=== PATIENT | female | born 1970 | race Caucasian/White ===

== ENCOUNTER → 2018-07-11 | Outpatient (CLI) | payer OTHER ==
--- NOTE | 2018-07-14 11:38 | MM ---
Reason for exam: screening (asymptomatic). Last mammogram was performed 6 years ago. History: Family history of breast cancer in maternal aunt at age 68. Took hormonal contraceptives for 5 years beginning at age 18. Physical Findings: A clinical breast exam by your physician is recommended on an annual basis and results should be correlated with mammographic findings. MG Screening Mammo w CAD Bilateral CC and MLO view(s) were taken. Prior study comparison: July 10, 2012, [facility] DIGITAL LEFT BREAST MAMMOGRAM w/CAD. July 04, 2012, bilateral digital screening mammo w/CAD. The breast tissue is heterogeneously dense. This may lower the sensitivity of mammography. No significant changes when compared with prior studies. ASSESSMENT: Benign, BI-RAD 2 RECOMMENDATION: Routine screening mammogram of both breasts in 1 year.
== END | disposition home or self-care (01) ==
LOC: RADMAMWWP 07:10
PROVIDERS: ATTEND Obstetrics & Gynecology
DX: Z12.31 Encounter for screening mammogram for malignant neoplasm of breast (principal)
CPT/HCPCS: 77067

== ENCOUNTER → 2018-12-31 | Day surgery (SDC) | payer OTHER ==
[2018-12-26 15:25] VITALS: BMI 30.7
[~2018-12-31] MED LIST: LACTATED RINGERS 1,000 ML IV SCH; LIDOCAINE 1% 20 ML VIAL (10MG/ML) FOR IV START INTRADERMA ONE; PROPOFOL 10 MG/ML 20 ML VIAL IV ONE
--- NOTE | 2018-12-31 08:47 | P.GSHP ---
History of Present Illness H&P Date: 12/31/18 CHIEF COMPLAINT: Colon screen HISTORY OF PRESENT ILLNESS: The patient is a 48-year-old female who presents for colon screen. Lower endoscopy was offered for further evaluation and management. PAST MEDICAL HISTORY: Please see list. PAST SURGICAL HISTORY: Please see list. MEDICATIONS: Please see list. ALLERGIES: Please see list. SOCIAL HISTORY: No illicit drug use FAMILY HISTORY: No reports of Crohn disease or ulcerative colitis. REVIEW OF ORGAN SYSTEMS: CONSTITUTIONAL: No reports of fevers or chills. PHYSICAL EXAM: VITAL SIGNS: Stable GENERAL: Well-developed pleasant in no acute distress. HEENT: No scleral icterus. Extraocular movements grossly intact. Moist buccal mucosa. NECK: Supple without lymphadenopathy. CHEST: Unlabored respirations. Equal bilateral excursions. CARDIOVASCULAR: Regular rate and rhythm. Distal 2+ pulses. ABDOMEN: Soft, nontender, nondistended. MUSCULOSKELETAL: No clubbing, cyanosis, or edema. ASSESSMENT: 1. Colon screen. PLAN: 1. Recommend proceeding with a lower endoscopy Past Medical History Past Medical History: Hyperlipidemia, Hypertension Additional Past Medical History / Comment(s): LOOSE STOOLS History of Any Multi-Drug Resistant Organisms: None Reported Past Surgical History: Section, Tonsillectomy Additional Past Surgical History / Comment(s): C SECTION X3 Past Anesthesia/Blood Transfusion Reactions: No Reported Reaction Smoking Status: Never smoker - Past Family History Mother Family Medical History: No Reported History Medications and Allergies Home Medications Medication Instructions Recorded Confirmed Type Lisinopril [Zestril] 10 mg PO DAILY 12/26/18 12/26/18 History Multivitamin with Iron 1 each PO DAILY 12/26/18 12/26/18 History [Multivitamins with Iron] Allergies Allergy/AdvReac Type Severity Reaction Status Date / Time No Known Allergies Allergy Verified 12/26/18 14:56
[2018-12-31 11:23] VITALS: TEMP 97.6
[2018-12-31 12:23] VITALS: RESP 17
--- NOTE | 2018-12-31 12:26 | P.PCN ---
Date of Procedure: 12/31/18 Description of Procedure: PREOPERATIVE DIAGNOSIS: Altered bowel function with diarrhea Family history of colon polyps, father POSTOPERATIVE DIAGNOSIS: Altered bowel function with diarrhea Family history of colon polyps, father Diverticulosis, scattered. External and internal prolapsed hemorrhoids stage IV OPERATION: Colonoscopy to the ileocecal valve and appendiceal orifice. Random cold biopsy forceps were obtained for microscopic colitis. SURGEON: Johana Dubose MD. ANESTHESIA: MAC. INDICATIONS: The patient is a 48-year-old female who presents with change in bowel habits. She has a family history of colon polyps in her father. This is her first colonoscopy. Benefits and risks were described and informed consent was obtained. DESCRIPTION OF PROCEDURE: The patient had undergone Gatorade, MiraLAX and Dulcolax prep. She had been brought into the operating room and laid in the left lateral decubitus position. After adequate intravenous sedation, the rectum was examined with 2% lidocaine jelly. Large external hemorrhoids were encountered. The rectal tone was within normal limits. No lesions were palpated in the rectal vault. An Olympus colonoscope was advanced until the ileocecal valve and appendiceal orifice were clearly viewed. The prep was excellent with clear visualization of the mucosal folds. The scope was removed with visualization of each mucosal fold. Scattered diverticulosis was encountered. No colonic polyps were found. Random cold biopsy forceps were obtained for microscopic colitis. Retroflexion of the scope demonstrated grade 4 internal hemorrhoids without active bleeding or inflammation. The colon was desufflated. The patient had tolerated the procedure well. Withdrawal time was over 6 minutes. FINDINGS: Aronchick preparation quality scale 1 (1-5) Internal hemorrhoids, stage IV External prolapsed hemorrhoids, stage IV No arteriovenous malformations. No adenomatous polyps. Scattered diverticulosis Random cold biopsy forceps were obtained for microscopic colitis. RECOMMENDATIONS: Lower endoscopy repeat in 5 years, 2023 Plan - Discharge Summary Discharge Rx Participant: Yes New Discharge Prescriptions: No Action Lisinopril [Zestril] 10 mg PO DAILY Multivitamin with Iron [Multivitamins with Iron] 1 each PO DAILY Discharge Medication List Lisinopril [Zestril] 10 mg PO DAILY 12/26/18 [History] Multivitamin with Iron [Multivitamins with Iron] 1 each PO DAILY 12/26/18 [History] Follow up Appointment(s)/Referral(s): Johana Dubose MD [STAFF PHYSICIAN] - 01/28/19 Patient Instructions/Handouts: *Surgery [facility] - (Anesthesia) Endoscopy Discharge Instructions, Microscopic Colitis (DC), Colonoscopy (DC) Activity/Diet/Wound Care/Special Instructions: Repeat colonoscopy in 5-10 years, 2023 Discharge Disposition: HOME SELF-CARE
[2018-12-31 12:29] VITALS: BP 123/66; PULSE 78
== END | disposition home or self-care (01) ==
LOC: ORWHC2ENDO 10:28
PROVIDERS: ATTEND Surgery Plastic and Reconstructive Surgery
DX: R19.7 Diarrhea, unspecified (principal); K57.30 Diverticulosis of large intestine without perforation or abscess without bleeding; K64.3 Fourth degree hemorrhoids; I10 Essential (primary) hypertension; E78.5 Hyperlipidemia, unspecified; Z83.71 Family history of colonic polyps; Z79.899 Other long term (current) drug therapy
CPT/HCPCS: 81025; 88305; 45380; J2704

== ENCOUNTER → 2022-06-08 | Outpatient (CLI) | payer OTHER ==
--- NOTE | 2022-06-08 16:36 | BD ---
EXAMINATION TYPE: Axial Bone Density DATE OF EXAM: 06/08/2022 COMPARISON: NEW TO DEXA STUDIES.....BASELINE TODAY CLINICAL HISTORY: 52 years year old Female. ICD-10 CODE: N95.1 MENOPAUSAL STATE Height: 65 Weight: 178 FRAX RISK QUESTIONS: NOTHING TO NOTE HERE, EXCEPT STEROIDS ON AND OFF FOR ARTHRITIS AND SCARING FROM TKR RISK FACTORS HISTORY OF: Postmenopausal woman: YES, 51 YRS OLD Hyperparathyroidism: NO Adrenal Insufficiency: NO MEDICATIONS: Prednisone or other steroids: ON AND OFF FOR ILLNESS AND SCARING OF TKR Additional Medications: BP MEDS, CALCIUM Additional History: HYPERTENSION, OSTEOARTHRITIS, RT TKR 4 MOS AGO EXAM MEASUREMENTS: Bone mineral densitometry was performed using the [employer]ish System. Bone mineral density as measured about the Lumbar spine is: ----- L1-L4(G/cm2): 1.183 T Score Values are as follows: ----- L1: 0.7 ----- L2: 0.1 ----- L3: -0.3 ----- L4: -0.4 ----- L1-L4: 0.0 Bone mineral density BASELINE STUDY Bone mineral density about the R hip (g/cm2): 0.856 Bone mineral density about the L hip (g/cm2): 0.947 T Score values are as follows -----R Neck: -1.4 -----L Neck: -1.0 -----R Total: -1.2 -----L Total: -0.5 Bone mineral density BASELINE STUDY FRAX%s: The graph provided illustrates a 4.7% chance for a major osteoporotic fx and a 0.3% chance fo r the hips probability for fx in 10 years time. IMPRESSION: Normal (Values between +1 and -1 indicate normal bone mass). Consider repeating this study in 5 year s or sooner if there is some new clinical indication. NOTE: T-SCORE=SD OF THE YOUNG ADULT MEAN.
--- NOTE | 2022-06-11 09:38 | MM ---
Reason for Exam: Screening (asymptomatic). Last mammogram was performed 3 year(s) and 11 month(s) ago. Patient History: Menarche at age 17. First Full-Term at age 23. Postmenopausal. Hormonal Contraceptives for 5 years from age 18 until age 23. Maternal aunt had breast cancer, age 68. Risk Values: Rae 5 year model risk: 0.8%. NCI Lifetime model risk: 7.2%. Prior Study Comparison: 07/04/2012 Bilateral Screening Mammogram, [facility]. 07/10/2012 Left Diagnostic Mammogram, [facility]. 07/11/2018 Bilateral Screening Mammogram, [facility]. Tissue Density: The breast tissue is heterogeneously dense. This may lower the sensitivity of mammography. Findings: Analyzed By CAD. There is no suspicious group of microcalcifications or new suspicious mass in either breast. No significant change from prior exams. Overall Assessment: Negative, BI-RAD 1 Management: Screening Mammogram of both breasts in 1 year. A clinical breast exam by your physician is recommended on an annual basis and results should be correlated with mammographic findings. Electronically signed and approved by: Noe Staton D.O.
== END | disposition home or self-care (01) ==
LOC: RADMAMWWP 10:56
PROVIDERS: ATTEND Obstetrics & Gynecology
DX: Z12.31 Encounter for screening mammogram for malignant neoplasm of breast (principal); N95.1 Menopausal and female climacteric states
CPT/HCPCS: 77063; 77067; 77080

== ENCOUNTER → 2023-06-18 | Outpatient (CLI) | payer OTHER ==
--- NOTE | 2023-06-19 19:14 | MM ---
Reason for Exam: Screening (asymptomatic). Last screening mammogram was performed 12 month(s) ago. Patient History: Menarche at age 17. First Full-Term at age 23. Postmenopausal. Patient has history of breast feeding. Hormonal Contraceptives for 5 years from age 18 until age 23. Currently using Estrogen and Progesterone, starting at age 52. Maternal aunt had breast cancer, age 68. Risk Values: Rae 5 year model risk: 0.9%. NCI Lifetime model risk: 7.1%. Prior Study Comparison: 07/04/2012 Bilateral Screening Mammogram, [facility]. 07/10/2012 Left Diagnostic Mammogram, [facility]. 07/11/2018 Bilateral Screening Mammogram, [facility]. 06/08/2022 Bilateral MG 3D screening mammo w/cad, [facility]. Tissue Density: The breast tissue is heterogeneously dense. This may lower the sensitivity of mammography. Findings: Analyzed By CAD. There is no suspicious group of microcalcifications or new suspicious mass in either breast. Overall Assessment: Negative, BI-RAD 1 Management: Screening Mammogram of both breasts in 1 year. . Patient should continue monthly self-breast exams. A clinical breast exam by your physician is recommended on an annual basis. This exam should not preclude additional follow-up of suspicious palpable abnormalities. Note on Rae scores and lifetime risk: 1. A Rae score greater than 3% is considered moderate risk. If this is the case, consider specialist referral to assess eligibility for a risk reducing agent. 2. If overall lifetime risk for the development of breast cancer is 20% or higher, the patient may qualify for future screening with alternating mammogram and breast MRI. Electronically signed and approved by: Scotty Machuca M.D. Radiologist
== END | disposition home or self-care (01) ==
LOC: RADMAMWWP 10:52
PROVIDERS: ATTEND Obstetrics & Gynecology
DX: Z12.31 Encounter for screening mammogram for malignant neoplasm of breast (principal); Z78.0 Asymptomatic menopausal state; Z80.3 Family history of malignant neoplasm of breast
CPT/HCPCS: 77063; 77067

== ENCOUNTER 2024-07-08 08:48 | Day surgery (SDC) | payer OTHER ==
--- NOTE | 2024-07-08 07:44 | P.GSHP ---
History of Present Illness H&P Date: 07/08/24 CHIEF COMPLAINT: Colon screen HISTORY OF PRESENT ILLNESS: The patient is a 54-year-old female who presents for colon screen. Lower endoscopy was offered for further evaluation and management. PAST MEDICAL HISTORY: Please see list. PAST SURGICAL HISTORY: Please see list. MEDICATIONS: Please see list. ALLERGIES: Please see list. SOCIAL HISTORY: No illicit drug use FAMILY HISTORY: No reports of Crohn disease or ulcerative colitis. REVIEW OF ORGAN SYSTEMS: CONSTITUTIONAL: No reports of fevers or chills. PHYSICAL EXAM: VITAL SIGNS: Stable GENERAL: Well-developed pleasant in no acute distress. HEENT: No scleral icterus. Extraocular movements grossly intact. Moist buccal mucosa. NECK: Supple without lymphadenopathy. CHEST: Unlabored respirations. Equal bilateral excursions. CARDIOVASCULAR: Regular rate and rhythm. Distal 2+ pulses. ABDOMEN: Soft, nontender, nondistended. MUSCULOSKELETAL: No clubbing, cyanosis, or edema. ASSESSMENT: 1. Colon screen. PLAN: 1. Recommend proceeding with a lower endoscopy Past Medical History Past Medical History: Hyperlipidemia, Hypertension Additional Past Medical History / Comment(s): LOOSE STOOLS History of Any Multi-Drug Resistant Organisms: None Reported Past Surgical History: Section, Joint Replacement, Tonsillectomy Additional Past Surgical History / Comment(s): C SECTION X3, yunier knee replaced, Past Anesthesia/Blood Transfusion Reactions: No Reported Reaction Smoking Status: Never smoker - Past Family History Mother Family Medical History: No Reported History Medications and Allergies Home Medications Medication Instructions Recorded Confirmed Type Acetaminophen [Tylenol] 325 mg PO Q4H PRN 07/06/24 07/06/24 History FLUoxetine HCL 20 mg PO DAILY 07/06/24 07/06/24 History Ibuprofen [Motrin] 600 mg PO Q8HR PRN 07/06/24 07/06/24 History Rosuvastatin [Crestor] 10 mg PO HS 07/06/24 07/06/24 History amLODIPine BESYLATE 5 mg PO DAILY 07/06/24 07/06/24 History Allergies Allergy/AdvReac Type Severity Reaction Status Date / Time iron AdvReac Unknown Verified 07/06/24 11:15 Childhood
[2024-07-08] MEDS: IV FLUID CONTINUATION 1,000 ML IV ONE (09:01)
[2024-07-08] MEDS: LACTATED RINGERS 1,000 ML IV SCH (09:11)
[2024-07-08 09:19] VITALS: TEMP 98.6
[2024-07-08] MEDS ORDERED: PROPOFOL 10 MG/ML 20 ML VIAL IV ONE (09:33)
[2024-07-08 10:45] VITALS: BP 133/93; PULSE 68; RESP 16
--- NOTE | 2024-07-08 11:00 | P.PCN ---
Date of Procedure: 07/08/24 Description of Procedure: PREOPERATIVE DIAGNOSIS: Personal history of colon polyp Family history of colon polyps Colonoscopy screening. History of rectal bleeding POSTOPERATIVE DIAGNOSIS: Colonoscopy screening. Diverticulosis, scattered. Internal and external grade 4 hemorrhoids OPERATION: Colonoscopy to the cecum, ileocecal valve and appendiceal orifice. SURGEON: Johana Dubose MD. ANESTHESIA: MAC. INDICATIONS: The patient is a 54-year-old female who presents for colonoscopy screening. Last colonoscopy 5 years ago. Benefits and risks were described and informed consent was obtained. DESCRIPTION OF PROCEDURE: The patient had undergone GoLytely prep. The patient had been brought into the operating room and laid in the left lateral decubitus position. After adequate intravenous sedation, the rectum was examined with 2% lidocaine jelly. External hemorrhoids were encountered. The rectal tone was within normal limits. No lesions were palpated in the rectal vault. An Olympus colonoscope was advanced until the cecum, ileocecal valve and appendiceal orifice were clearly viewed. The prep was excellent. Scattered diverticulosis was encountered. No colonic polyps were found. No evidence of focal colitis was found. Retroflexion of the scope demonstrated grade 4 internal hemorrhoids without active bleeding or inflammation. The colon was desufflated. The patient had tolerated the procedure well. Withdrawal time was over 6 minutes. FINDINGS: Aronchick preparation quality scale 1 (1-5) Internal hemorrhoids, grade 4 External prolapsed hemorrhoids, grade 4 No arteriovenous malformations. No adenomatous polyps. No focal colitis. Sigmoid diverticulosis RECOMMENDATIONS: Lower endoscopy in 5 years, 2028 Plan - Discharge Summary Discharge Rx Participant: No New Discharge Prescriptions: Continue Acetaminophen [Tylenol] 325 mg PO Q4H PRN PRN Reason: Pain Ibuprofen [Motrin] 600 mg PO Q8HR PRN PRN Reason: Pain amLODIPine BESYLATE 5 mg PO DAILY Rosuvastatin [Crestor] 10 mg PO HS FLUoxetine HCL 20 mg PO DAILY Estrogen,Con/M-Progest Acet [Prempro 0.3 mg-1.5 mg Tablet] 1 tablet PO DAILY Discharge Medication List Acetaminophen [Tylenol] 325 mg PO Q4H PRN 07/06/24 [History] FLUoxetine HCL 20 mg PO DAILY 07/06/24 [History] Ibuprofen [Motrin] 600 mg PO Q8HR PRN 07/06/24 [History] Rosuvastatin [Crestor] 10 mg PO HS 07/06/24 [History] amLODIPine BESYLATE 5 mg PO DAILY 07/06/24 [History] Estrogen,Con/M-Progest Acet [Prempro 0.3 mg-1.5 mg Tablet] 1 tablet PO DAILY 07/08/24 [History] Follow up Appointment(s)/Referral(s): Johana Dubose MD [STAFF PHYSICIAN] - As Needed Patient Instructions/Handouts: *Surgery [facility] - (Anesthesia) Discharge Instructions Outpatient Surgery, Hemorrhoids (DC), Rectal Bleeding (GEN), Diverticulosis (DC) Activity/Diet/Wound Care/Special Instructions: Repeat colonoscopy in 5 years, 2028 Discharge Disposition: HOME SELF-CARE
== END 2024-07-08 11:29 | disposition home or self-care (01) ==
LOC: ORWHC2ENDO 08:48
PROVIDERS: ATTEND Surgery Plastic and Reconstructive Surgery
DX: Z12.11 Encounter for screening for malignant neoplasm of colon (principal); K57.30 Diverticulosis of large intestine without perforation or abscess without bleeding; K64.3 Fourth degree hemorrhoids; E78.5 Hyperlipidemia, unspecified; K21.9 Gastro-esophageal reflux disease without esophagitis; I10 Essential (primary) hypertension; Z90.89 Acquired absence of other organs; Z83.719 Family history of colon polyps, unspecified; Z86.0100 Personal history of colon polyps, unspecified; Z79.1 Long term (current) use of non-steroidal anti-inflammatories (NSAID); Z79.899 Other long term (current) drug therapy; Z88.8 Allergy status to other drugs, medicaments and biological substances
CPT/HCPCS: 45378; J2704

== ENCOUNTER → 2024-07-10 | Outpatient (CLI) | payer OTHER ==
--- NOTE | 2024-07-13 09:44 | MM ---
Reason for Exam: Screening (asymptomatic). Last mammogram was performed 1 year(s) and 1 month(s) ago. Patient History: Menarche at age 17. First Full-Term at age 23. Postmenopausal. Patient has history of breast feeding. Hormonal Contraceptives for 5 years from age 18 until age 23. Currently using Estrogen and Progesterone, starting at age 52. Maternal aunt had breast cancer, age 68. Risk Values: Rae 5 year model risk: 0.9%. NCI Lifetime model risk: 7.0%. Prior Study Comparison: 07/11/2018 Bilateral Screening Mammogram, [facility]. 06/08/2022 Bilateral MG 3D screening mammo w/cad, [facility]. 06/18/2023 Bilateral MG 3D screening mammo w/cad, [facility]. Tissue Density: The breasts are heterogeneously dense, which may obscure small masses. Findings: Analyzed By CAD. Right breast: There is no suspicious group of microcalcifications or new suspicious mass. Left breast: There is no suspicious group of microcalcifications or new suspicious mass. Overall Assessment: Negative, BI-RAD 1 Management: Screening Mammogram of both breasts in [address] [facility] will attempt to contact patient to return for supplemental views and ultrasound if indicated. Patient should continue monthly self-breast exams. A clinical breast exam by your physician is recommended on an annual basis. This exam should not preclude additional follow-up of suspicious palpable abnormalities. Note on Rae scores and lifetime risk: 1. A Rae score greater than 3% is considered moderate risk. If this is the case, consider specialist referral to assess eligibility for a risk reducing agent. 2. If overall lifetime risk for the development of breast cancer is 20% or higher, the patient may qualify for future screening with alternating mammogram and breast MRI. [facility], , 07/13/2024 9:42 AM. Electronically signed and approved by: Callum Pino DO
== END | disposition home or self-care (01) ==
LOC: RADMAMWWP 14:15
PROVIDERS: ATTEND Family Medicine
DX: Z12.31 Encounter for screening mammogram for malignant neoplasm of breast (principal); R92.333 Mammographic heterogeneous density, bilateral breasts; Z78.0 Asymptomatic menopausal state; Z80.3 Family history of malignant neoplasm of breast
CPT/HCPCS: 77063; 77067